=== PATIENT | female | born 1950 | race Two or more races ===

== ENCOUNTER → 2016-10-25 | Outpatient (CLI) | payer OTHER | LOC: BRMIMAGING 13:02 | DX: Z12.31 Encounter for screening mammogram for malignant neoplasm of breast (principal); Z80.3 Family history of malignant neoplasm of breast; Z13.820 Encounter for screening for osteoporosis; M81.0 Age-related osteoporosis without current pathological fracture | CPT/HCPCS: G0202 ==

== ENCOUNTER → 2017-11-20 | Outpatient (CLI) | payer OTHER | LOC: BRMIMAGING 11:28 | DX: Z12.31 Encounter for screening mammogram for malignant neoplasm of breast (principal) ==